=== PATIENT | male | born 1990 | race Two or more races ===

== ENCOUNTER 2016-11-24 02:05 | Emergency (ER) | payer OTHER ==
--- NOTE | ~2016-11-24 | CR181 ---
[facility] A Service of [facility] & [facility] RADIOLOGY TEXT RESULTS PATIENT: ZACH SY LOCATION: [facility] : [birth year] UNIT #: [id number] AGE: [address]: Lindsay Van MD SEX: M ORDER DR: [id number] [facility] [address] [place], [place] [address] [id number] E MR#: [id number] Acc #: [id number] NAME: ZACH SY : 1990 SEX: M STUDY DATE/TIME: 11/24/2016 2:13 UNIT: [facility] ROOM: STUDY DESCRIPTION: CR Lumbar Spine 2 or 3 Views Attending Physician: Lindsay Van M.D. Ordering Physician: Lindsay Van M.D. Primary Care Physician: Primary Care Physician No MEDICAL IMAGING REPORT This report is preliminary unless electronic signature is present EXAM 3 views lumbar spine, 11/24/2016 HISTORY 26-year-old male with back pain today after falling down steps. COMPARISON Lumbar spine radiographs, 09/24/2012 FINDINGS AP and lateral projections of the lumbar segment show good mineralization of both anterior and posterior elements. They are all anatomically normal without indication of fracture, dislocation, or malignant change of a sclerotic or lytic type. There is no congenital defect noted. The sacroiliac joints are normal. IMPRESSION Normal lumbar spine. Dictated by... Yumiko Rothman M.D. THIS IS AN ELECTRONICALLY VERIFIED REPORT Yumiko Rothman M.D. at 11/24/2016 10:01 PM MEI/karoline TD: 11/24/2016 07:56 JOB #: [id number] MEDICAL IMAGING REPORT COPY
--- NOTE | ~2016-11-24 | CR243 ---
[facility] A Service of [facility] & [facility] RADIOLOGY TEXT RESULTS PATIENT: ZACH SY LOCATION: [facility] : [birth year] UNIT #: [id number] AGE: [address]: Lindsay Van MD SEX: M ORDER DR: [id number] [facility] [address] [place], [place] [address] [id number] E MR#: [id number] Acc #: [id number] NAME: ZACH SY : 1990 SEX: M STUDY DATE/TIME: 11/24/2016 2:16 UNIT: [facility] ROOM: STUDY DESCRIPTION: CR Thoracic Spine 3 Views Attending Physician: Lindsay Van M.D. Ordering Physician: Lindsay Van M.D. Primary Care Physician: Primary Care Physician No MEDICAL IMAGING REPORT This report is preliminary unless electronic signature is present EXAM 3 views thoracic spine, 11/24/2016 HISTORY Back pain after falling down stairs today. COMPARISON Thoracic spine series, 06/04/2015 FINDINGS AP and lateral examination of the dorsal segment shows normal mineralization and a satisfactory anatomical dorsal kyphosis. All body heights, interspaces, and posterior elements are normal anatomically without any indication of malignancy, trauma, unusual paraspinal soft tissue density mass, or congenital defect. IMPRESSION Normal thoracic spine. Dictated by... Yumiko Rothman M.D. THIS IS AN ELECTRONICALLY VERIFIED REPORT Yumiko Rothman M.D. at 11/24/2016 10:01 PM MEI/karoline TD: 11/24/2016 07:58 JOB #: [id number] MEDICAL IMAGING REPORT COPY
[~2016-11-24 02:05] MED LIST: FLEXERIL10 M1 PO; TYLENOL #3 PO; VOLTAREN75 MG PO
== END 2016-11-24 03:00 | disposition home or self-care (01) ==
LOC: CED 02:05
DX: S33.5XXA Sprain of ligaments of lumbar spine, initial encounter (principal); S23.3XXA Sprain of ligaments of thoracic spine, initial encounter; F17.200 Nicotine dependence, unspecified, uncomplicated; W10.9XXA Fall (on) (from) unspecified stairs and steps, initial encounter; Y92.9 Unspecified place or not applicable; J40 Bronchitis, not specified as acute or chronic
CPT/HCPCS: 72072; 72100; 99284